=== PATIENT | female | born 1990 | race Caucasian/White ===

== ENCOUNTER 2017-11-12 11:16 | Inpatient (IN) | payer OTHER ==
[2017-11-12] MEDS ORDERED: NALBUPHINE HCL 10 MG/ML AMPUL IV PRN ×2 (11:54)
[2017-11-12] MEDS ORDERED: ONDANSETRON HCL/PF 2 MG/ML VIAL IV PRN ×3 (11:54→17:50)
[2017-11-12] MEDS ORDERED: OXYTOCIN/DEXTROSE 5%-WATER 30 UNITS/500 ML BAG IV ONE ×2 (11:54→23:18)
[2017-11-12] MEDS ORDERED: LIDOCAINE HCL 50 ML VIAL PERI PRN (11:54)
[2017-11-12] MEDS: RINGER'S SOLUTION,LACTATED 1,000 ML IV PRN ×2 (12:23→17:57)
[2017-11-12 12:28] LABS: Hematocrit 35.3 % (37.0-47.0); Hemoglobin 12.5 gm/dL (12.5-16.0); Mean Cell Volume 90.1 fl (78-100); Mean Corpuscular Hemoglobin 31.9 pg (27-31); Mean Corpuscular Hgb Conc 35.4 g/dl (32-36); Mean Platelet Volume 10.7 fl (8-12.5); Neutrophil # 7.8 K/mm3 (1.3-6.0); Platelet Count 279 K/mm3 (150-450); Red Blood Count 3.92 M/mm3 (4.2-5.4); Red Cell Distribution Width 12.4 % (11.5-14.0)
[2017-11-12 12:47] LABS: Albumin * 2.8 gm/dl (3.4-5.0); Anion Gap 13.2 mmol/L (6.8-13.8); BUN/Creatinine Ratio 9.5 (9.0-21.6); Bilirubin, Total 0.4 mg/dL (0.0-1.1); Ca. Corrected For Albumin 9.4 mg/dL (8.4-10.2); Calcium * 8.8 mg/dL (7.9-10.9); Carbon Dioxide 22.3 mmol/L (24-32.6); Potassium 3.5 mmol/L (3.4-4.6); Total Protein 6.3 gm/dL (6.2-8.2)
[2017-11-12] MEDS ORDERED: NALOXONE HCL 1 MG/1 ML SYRG IV PRN ×2 (17:44→17:50)
[2017-11-12] MEDS ORDERED: BUPIVACAINE HCL/PF 30 ML VIAL EP SCH (17:45)
[2017-11-12] MEDS ORDERED: BUPIVACAINE HCL/0.9 % NACL/PF 250 ML EP PRN (17:50)
--- NOTE | 2017-11-12 18:18 | ANES ---
Anesthesia Pre Procedure Eval Vitals/Labs: Last Vital Signs Temp 37.3 C 11/12/17 12:00 Pulse 76 11/12/17 12:00 Resp 18 11/12/17 12:00 BP 132/75 11/12/17 12:00 Pulse Ox 100 11/12/17 12:00 HOME MEDICATIONS vitamins-iron fumarate 27 mg iron-folic acid 0.8 mg tablet 1 tab PO DAILY 09/26/17 [Last Taken 11/11/17 20:30] valacyclovir 1 gram tablet 1,000 mg PO DAILY #30 tab 11/04/17 [Last Taken 10:30] Allergies/Adverse Reactions: Allergies Allergy/AdvReac Type Severity Reaction Status Date / Time No Known Allergies Allergy Verified 11/04/17 09:40 - Planned Procedure Planned Procedure: Labor epidural Medication List Reviewed:: Yes Allergies Verified: Yes Medical History (Last Updated 09/26/17 @ 09:27 by Cassidy Banks) Currently Onset Date: 05/06/17 Allergic rhinitis Onset Date: Unknown Genital herpes Onset Date: 03/12/12 HSV (herpes simplex virus) anogenital infection Onset Date: 03/12/12 Amenorrhea Onset Date: 08/24/13 MATHEW III (cervical intraepithelial neoplasia grade III) with severe dysplasia Onset Date: 12/10/11 Vulvar lesion Onset Date: 03/05/12 Surgical History (Last Updated 09/26/17 @ 09:27 by Cassidy Banks) Ectopic Onset Date: 09/21/15 H/O LEEP Onset Date: 12/25/11 H/O adenoidectomy Onset Date: Unknown H/O laparoscopy Onset Date: 09/21/15 History of placement of ear tubes Onset Date: Unknown History of tonsillectomy Onset Date: Unknown Family History (Last Updated 09/26/17 @ 09:29 by Cassidy Banks) Brother Asthma Sister No problems noted. Grandfather Cancer Diabetes Heart disease Myocardial infarction Grandmother Diabetes Heart disease Grandmother Cancer Myocardial infarction - Anesthesia Assessment and Plan ASA Class: PS, II Anesthesia Type Plan: Epidural
--- NOTE | 2017-11-12 18:41 | ANES ---
Anesthesia Procedure Note Procedure Note: ANESTHESIA PROCEDURE NOTE Date of Procedure: 11/12/2017. Time of procedure: 1820. Performed by: Anant Hinds CRNA Automation Technologist: None. Preprocedure diagnosis: Active labor. Post procedure diagnosis: Same. Procedure: Insertion of labor epidural. Indications: The patient is a 26 -year-old female in active labor requesting labor epidural for pain management. Findings: See below. Details of the procedure: The patient was placed in a sitting position. DuraPrep as well as Betadine swabs X3 was applied to the patient's back. Patient was then draped in a sterile fashion. Lidocaine 1% was infiltrated to the skin and subcutaneous tissues at the level of the L3-4 interspace. The epidural space was identified using a 18-gauge Tuohy needle with loss-of- resistance technique. Epidural catheter was inserted to a depth of 11 centimeters at skin. Negative test dose was elicited using 3 mL of 1.5% preservative-free lidocaine plus epinephrine 1 200,000. The epidural catheter was then taped and secured in place. A loading dose of 8 mL of 0.25% preservative-free bupivacaine was administered to the epidural catheter after negative aspiration for blood and CSF. EBL: Minimal. Fluids: N/A. Specimen: N/A. Post procedure condition: The patient tolerated the procedure well. No complications were noted. Thank you for this consultation. Anant Hinds CRNA
--- NOTE | 2017-11-12 18:43 | ANES ---
Post Anesthesia Assessment - Vital Signs Vitals: Last Vital Signs Temp 36.5 C 11/12/17 18:39 Pulse 67 11/12/17 18:39 Resp 18 11/12/17 18:39 BP 141/84 H 11/12/17 18:39 Pulse Ox 96 11/12/17 18:39 Airway Patency: Normal - Mental Status Level Of Consciousness: Awake - N/V Assessment Nausea/Vomiting Presence: None Dehydration:: No
--- NOTE | 2017-11-12 22:05 | PN ---
Progess Note - Interim Date: 11/12/17 Time: 22:04 Narrative: 11/12/17 22:04 There was transient tachycardia while pushing. Temperature was checked and it was 101 F consistent with chorioamnionitis. Give a dose of ampicillin 2grams and start ampicillin q 6 hours. Will add gentamicin and clindamycin after delivery.
[2017-11-12] MEDS: AMPICILLIN SODIUM 2,000 MG in NORMAL SALINE 100 ML IV SCH (22:15)
[2017-11-12] MEDS ORDERED: HYDROCORTISONE 30 APPL TUBE TP PRN (23:18)
[2017-11-12] MEDS ORDERED: oxyCODONE HCL/ACETAMINOPHEN 1 TAB TABLET PO PRN (23:18)
[2017-11-12] MEDS ORDERED: GLYCERIN/WITCH HAZEL LEAF 40 APPL BOX TP PRN (23:18)
[2017-11-12] MEDS ORDERED: BENZOCAINE/MENTHOL 81 SPRAY CAN TP PRN (23:18)
[2017-11-12] MEDS ORDERED: SENNOSIDES 8.6 MG TABLET PO PRN (23:18)
[2017-11-12] MEDS ORDERED: BISACODYL 10 MG SUPP.RECT RC PRN (23:18)
--- NOTE | 2017-11-12 23:29 | HP ---
Chief Complaint - Chief Complaint Date of Service: 11/12/17 Time of Service: 10:00 Chief Complaint: I lost my mucus plug History of Present Illness: The patient presented to the office today for a routine obstetrical visit. She complained that she had lost her mucus plug. On examination in the office she was found to be ruptured. She denied ctx or ernesto VB. Fetus was active. Medical History (Last Updated 09/26/17 @ 09:27 by Cassidy Banks) Currently Onset Date: 05/06/17 Allergic rhinitis Onset Date: Unknown Genital herpes Onset Date: 03/12/12 HSV (herpes simplex virus) anogenital infection Onset Date: 03/12/12 Amenorrhea Onset Date: 08/24/13 MATHEW III (cervical intraepithelial neoplasia grade III) with severe dysplasia Onset Date: 12/10/11 Vulvar lesion Onset Date: 03/05/12 Surgical History: Surgical History (Last Updated 09/26/17 @ 09:27 by Cassidy Banks) Ectopic Onset Date: 09/21/15 H/O LEEP Onset Date: 12/25/11 H/O adenoidectomy Onset Date: Unknown H/O laparoscopy Onset Date: 09/21/15 History of placement of ear tubes Onset Date: Unknown History of tonsillectomy Onset Date: Unknown Family History: Family History (Last Updated 09/26/17 @ 09:29 by Cassidy Banks) Brother Asthma Sister No problems noted. Grandfather Cancer Diabetes Heart disease Myocardial infarction Grandmother Diabetes Heart disease Grandmother Cancer Myocardial infarction Social History: Preferred Language Maltese Abuse History No History of abuse Psych History Hx of Anxiety,Hx of Depression Review Of Systems (GEN) - Review of Systems EENTM: Present: No Symptoms Reported Respiratory: Present: No Symptoms Reported Cardiac: Present: No Symptoms Reported Abdominal: Present: No Symptoms Reported Genitourinary: Present: No Symptoms Reported Musculoskeletal: Present: No Symptoms Reported Neurological: Present: No Symptoms Reported Skin: Present: No Symptoms Reported Endocrine: Present: No Symptoms Reported Immunizations: IMMUNIZATION HX Immunizations Up to Date Yes Allergies/Adverse Reactions: Allergies Allergy/AdvReac Type Severity Reaction Status Date / Time No Known Allergies Allergy Verified 11/04/17 09:40 Home Medications: HOME MEDICATIONS vitamins-iron fumarate 27 mg iron-folic acid 0.8 mg tablet 1 tab PO DAILY 09/26/17 [Last Taken 11/11/17 20:30] valacyclovir 1 gram tablet 1,000 mg PO DAILY #30 tab 11/04/17 [Last Taken 10:30] Exam - Exam Vital Signs: Vital Signs - Last Taken Temp 36.5 C 11/12/17 18:39 Pulse 67 11/12/17 18:39 Resp 18 11/12/17 18:39 BP 141/84 H 11/12/17 18:39 Pulse Ox 96 11/12/17 18:39 Constitutional: Present: Alert, Oriented x3, Cooperative Back Exam: Present: normal inspection, no CVA tenderness Cardiovascular/Chest: Present: regular rate, rhythm, no edema Abdomen: Present: Normal bowel sounds, soft, nontender Extremity: Present: normal range of motion, non-tender, no calf tenderness, pedal edema Skin Exam: Present: normal color, warm/dry, no cyanosis Appearance: Present: appropriate appearance Eye contact: Present: cooperative Thoughts: Present: normal thought pattern Diagnostic Studies: Abnormal Lab Results 11/12/17 11/12/17 Range/Units 12:00 12:00 RBC 3.92 L (4.2-5.4) M/mm3 Hct 35.3 L (37.0-47.0) % MCH 31.9 H (27-31) pg Immature Gran % (Auto) 0.50 H (0.001-0.429) % Immature Gran # (Auto) 0.05 H (0.000-0.0310) K/mm3 Neutrophils % 78.0 H (42-75.0) % Lymphocytes % 14.5 L (20-51) % Neutrophils # 7.8 H (1.3-6.0) K/mm3 Lymphocytes # 1.45 L (1.5-3.5) k/mm3 Carbon Dioxide 22.3 L (24-32.6) mmol/L Est GFR (Non-Af Amer) 192 H (60-130) mL/min ALT 16 L (19-67) U/L Albumin 2.8 L (3.4-5.0) gm/dl Laboratory Results WBC 10.0 K/mm3 (4.0-10.5) 11/12/17 12:00 RBC 3.92 M/mm3 (4.2-5.4) L 11/12/17 12:00 Hgb 12.5 gm/dL (12.5-16.0) 11/12/17 12:00 Hct 35.3 % (37.0-47.0) L 11/12/17 12:00 MCV 90.1 fl (78-100) 11/12/17 12:00 MCH 31.9 pg (27-31) H 11/12/17 12:00 MCHC 35.4 g/dl (32-36) 11/12/17 12:00 RDW 12.4 % (11.5-14.0) 11/12/17 12:00 Plt Count 279 K/mm3 (150-450) 11/12/17 12:00 MPV 10.7 fl (8-12.5) 11/12/17 12:00 Immature Gran % (Auto) 0.50 % (0.001-0.429) H 11/12/17 12:00 Immature Gran # (Auto) 0.05 K/mm3 (0.000-0.0310) H 11/12/17 12:00 Neutrophils % 78.0 % (42-75.0) H 11/12/17 12:00 Lymphocytes % 14.5 % (20-51) L 11/12/17 12:00 Monocytes % 6.0 % (0.0-9) 11/12/17 12:00 Eosinophils % 0.7 % (0.0-3.0) 11/12/17 12:00 Basophils % 0.3 % (0.0-1.0) 11/12/17 12:00 Nucleated RBC % 0.0 k/mm3 (0-1) 11/12/17 12:00 Neutrophils # 7.8 K/mm3 (1.3-6.0) H 11/12/17 12:00 Lymphocytes # 1.45 k/mm3 (1.5-3.5) L 11/12/17 12:00 Monocytes # 0.6 k/mm3 (0.0-1.0) 11/12/17 12:00 Eosinophils # 0.1 k/mm3 (0.0-0.7) 11/12/17 12:00 Absolute Basophils 0.0 k/mm3 (0.0-0.1) 11/12/17 12:00 Sodium 136 mmol/L (132-142) 11/12/17 12:00 Plasma Sodium 136 mmol/L (130-142) 11/12/17 12:00 Potassium 3.5 mmol/L (3.4-4.6) 11/12/17 12:00 Chloride 104 mmol/L (97-106) 11/12/17 12:00 Carbon Dioxide 22.3 mmol/L (24-32.6) L 11/12/17 12:00 Anion Gap 13.2 mmol/L (6.8-13.8) 11/12/17 12:00 BUN 4 mg/dL (3-23) 11/12/17 12:00 Creatinine 0.42 mg/dL (0.4-1.4) 11/12/17 12:00 Est GFR (Non-Af Amer) 192 mL/min (60-130) H 11/12/17 12:00 BUN/Creatinine Ratio 9.5 (9.0-21.6) 11/12/17 12:00 Random Glucose 84 mg/dL (70-110) 11/12/17 12:00 Calcium 8.8 mg/dL (7.9-10.9) 11/12/17 12:00 Calcium Adj for Albumin 9.4 mg/dL (8.4-10.2) 11/12/17 12:00 Total Bilirubin 0.4 mg/dL (0.0-1.1) 11/12/17 12:00 AST 14 U/L (0-48) 11/12/17 12:00 ALT 16 U/L (19-67) L 11/12/17 12:00 Alkaline Phosphatase 152 U/L (50-170) 11/12/17 12:00 Total Protein 6.3 gm/dL (6.2-8.2) 11/12/17 12:00 Albumin 2.8 gm/dl (3.4-5.0) L 11/12/17 12:00 Blood Type A Positive 11/12/17 12:00 Antibody Screen Negative 11/12/17 12:00
--- NOTE | 2017-11-12 23:35 | OR ---
Operative Report - Dictated Report Narrative: Procedure: vaginal delivery with attempted vaccuum Date of delivery: 11/12/2017 Time of delivery: 2301 weight: 2704 grams APGARS: Description of the procedure: A vaccuum was placed due to heart rate changes but insufficient suction occurred due to the head full of hair. After two short and consecutive pop offs further attempts at vaccuum extraction were abandoned. The patient delivered a viable female in the OP presentation. The cord was clampled and cut and the baby was handed off to the nursing staff. The placenta was delivered by expression and it appeared intact. The placenta was sent to pathology. The patient had a vaginal laceration which was repaired with 2-0 vicryl. Hemostasis was adequate. EBL: 200 mL Definition: * The number of deliveries resulting in a live the patient experienced prior to current hospitalization * The previous delivery of live twins or any live multiple gestation is considered one live event. *If primagravida or nulliparous is documented select zero for the number of previous live births. Live Births: 0
[2017-11-12] MEDS: oxyCODONE HCL/ACETAMINOPHEN 1 TAB TABLET PO PRN (23:55)
[2017-11-12] MEDS: IBUPROFEN 800 MG TABLET PO PRN (23:55)
[2017-11-13] MEDS ORDERED: CLINDAMYCIN PHOSPHATE 600 MG in DEXTROSE 5 % IN WATER 100 ML IV SCH ×2
[2017-11-13] MEDS ORDERED: GENTAMICIN SULFATE 100 MG in DEXTROSE 5 % IN WATER 100 ML IV SCH ×2 (01:00)
[2017-11-13] MEDS: AMPICILLIN SODIUM 2,000 MG in NORMAL SALINE 100 ML IV SCH ×4 (04:01→22:32)
[2017-11-13] MEDS: oxyCODONE HCL/ACETAMINOPHEN 1 TAB TABLET PO PRN ×2 (06:12→13:52)
--- NOTE | 2017-11-13 09:06 | PN ---
Subjective - Date and Time Seen Date: 11/13/17 Time: 07:30 Objective - Review of Systems Generalized/Overall Review: Reports: No Symptoms Reported EENTM: Reports: No Symptoms Reported Respiratory: Reports: No Symptoms Reported Cardiac: Reports: No Symptoms Reported Abdominal: Reports: No Symptoms Reported Genitourinary Symptoms: Reports: No Symptoms Reported Musculoskeletal Complaints: Reports: No Symptoms Reported Neurological: Reports: No Symptoms Reported Skin: Reports: No Symptoms Reported Endocrine: Reports: No Symptoms Reported - Vitals Vitals: Last Vital Signs Temp 36.7 C 11/13/17 07:25 Pulse 96 11/13/17 07:25 Resp 18 11/13/17 07:25 BP 127/65 11/13/17 07:25 Pulse Ox 98 11/13/17 07:25 - Abnormal Lab Findings Abnormal Lab Findings: Abnormal Lab Results 11/12/17 11/12/17 Range/Units 12:00 12:00 RBC 3.92 L (4.2-5.4) M/mm3 Hct 35.3 L (37.0-47.0) % MCH 31.9 H (27-31) pg Immature Gran % (Auto) 0.50 H (0.001-0.429) % Immature Gran # (Auto) 0.05 H (0.000-0.0310) K/mm3 Neutrophils % 78.0 H (42-75.0) % Lymphocytes % 14.5 L (20-51) % Neutrophils # 7.8 H (1.3-6.0) K/mm3 Lymphocytes # 1.45 L (1.5-3.5) k/mm3 Carbon Dioxide 22.3 L (24-32.6) mmol/L Est GFR (Non-Af Amer) 192 H (60-130) mL/min ALT 16 L (19-67) U/L Albumin 2.8 L (3.4-5.0) gm/dl - Exam Constitutional: Present: Alert, Oriented x3, Cooperative, No distress Breasts: Present: Exam deferred Abdomen: Present: Normal bowel sounds, soft, nontender - fundus nontender Skin Exam: Present: normal color, warm/dry, no cyanosis Lymphatic: Present: no adenopathy Appearance: Present: appropriate appearance Eye contact: Present: cooperative Thoughts: Present: normal thought pattern Cauti Physician Documentation - Urinary Catheter Management Urethral (Sykes) Urethral Indwelling: No Date of Insertion: 11/12/17 Time of Insertion: 18:30 Date of Removal: 11/12/17 Time of Removal: 22:00 Assessment/Plan Plan Narrative: Continue antibiotics until 24 hours afebrile Discharge tomorrow
[2017-11-13] MEDS: CLINDAMYCIN PHOSPHATE 600 MG in DEXTROSE 5 % IN WATER 100 ML IV SCH ×4 (09:19→17:26)
[2017-11-13] MEDS: DOCUSATE SODIUM 100 MG CAPSULE PO SCH ×2 (09:19→21:02)
[2017-11-13] MEDS: GENTAMICIN SULFATE 100 MG in DEXTROSE 5 % IN WATER 100 ML IV SCH ×4 (11:25→17:56)
--- NOTE | 2017-11-14 08:27 | PN ---
Subjective - Date and Time Seen Date: 11/14/17 Time: 08:26 Objective - Review of Systems Generalized/Overall Review: Reports: No Symptoms Reported EENTM: Reports: No Symptoms Reported Respiratory: Reports: No Symptoms Reported Cardiac: Reports: No Symptoms Reported Abdominal: Reports: No Symptoms Reported Genitourinary Symptoms: Reports: No Symptoms Reported Musculoskeletal Complaints: Reports: No Symptoms Reported Neurological: Reports: No Symptoms Reported Skin: Reports: No Symptoms Reported Endocrine: Reports: No Symptoms Reported - Vitals Vitals: Last Vital Signs Temp 36.4 C 11/14/17 01:01 Pulse 94 11/14/17 01:01 Resp 18 11/14/17 01:01 BP 133/69 11/14/17 01:01 Pulse Ox 98 11/14/17 01:01 - Exam Constitutional: Present: Alert, Oriented x3, Cooperative, No distress Breasts: Present: Exam deferred Abdomen: Present: soft, nontender - fundus firm and nontender Extremity: Present: non-tender, no calf tenderness Skin Exam: Present: normal color, warm/dry, no cyanosis Appearance: Present: appropriate appearance Eye contact: Present: cooperative Thoughts: Present: normal thought pattern Cauti Physician Documentation - Urinary Catheter Management Urethral (Sykes) Urethral Indwelling: No Date of Insertion: 11/12/17 Time of Insertion: 18:30 Date of Removal: 11/12/17 Time of Removal: 22:00 Assessment/Plan Plan Narrative: PPD2 s/p s/p IV Abx for chorio Discharge today
[2017-11-14] MEDS: DOCUSATE SODIUM 100 MG CAPSULE PO SCH ×2 (09:56→20:04)
[2017-11-14] MEDS: IBUPROFEN 800 MG TABLET PO PRN (09:57)
[2017-11-14 18:33] VITALS: BP 117/74
== END 2017-11-14 23:55 | disposition home or self-care (01) | DRG 775 ==
LOC: OB 11:16
PROVIDERS: ADMIT Obstetrics & Gynecology; ATTEND Obstetrics & Gynecology
DX: O13.4 Gestational [pregnancy-induced] hypertension without significant proteinuria, complicating childbirth; O70.0 First degree perineal laceration during delivery; Z37.0 Single live birth; Z3A.36 36 weeks gestation of pregnancy; O66.5 Attempted application of vacuum extractor and forceps; O76 Abnormality in fetal heart rate and rhythm complicating labor and delivery; O60.14X0 Preterm labor third trimester with preterm delivery third trimester, not applicable or unspecified
CPT/HCPCS: 36415; 59025; 80053; 85025; 86850; 86900; 88307